=== PATIENT | male | born 2000 | race Caucasian/White ===

== ENCOUNTER 2023-09-26 16:36 | Emergency (ER) | payer SELFPAY ==
[~2023-09-26] VITALS: Ht 170.2 cm; Wt 77.0 kg
[2023-09-26 16:55] VITALS: BP 133/83; PULSE 109; TEMP 98.6; O2SAT 98
[2023-09-26] MEDS: DEXAMETHASONE 4MG/ML 1ML VIAL IM ONE (18:17)
[2023-09-26] MEDS: VISCOUS LIDOCAINE 2% 15 ML UDC PO NR (18:17)
[2023-09-26] MEDS ORDERED: CETI10CA2 MT (18:23)
[2023-09-26] MEDS ORDERED: AMOX-494 MT (18:23)
[2023-09-26 18:39] VITALS: RESP 16
== END 2023-09-26 18:40 | disposition home or self-care (01) ==
LOC: ER 16:36
DX: K12.2 Cellulitis and abscess of mouth (principal)
CPT/HCPCS: 87430; 87070; 96372; 99283; J1100; Z7610